=== PATIENT | female | born 1960 | race Hispanic/Latino ===

== ENCOUNTER 2019-03-21 16:52 | Emergency (ER) | payer SELFPAY ==
[2019-03-21 17:12] VITALS: BP 168/86
--- NOTE | 2019-03-21 17:14 | Event Note ---
ED Screening Note Date of service: 03/21/19 Time: 17:13 ED Screening Note: Pt complains of generalized body aches, fever, and right sided facial/neck pain x yesterday. States recently bitten by a tick 4 days ago This initial assessment/diagnostic orders/clinical plan/treatment(s) is/are subj ect to change based on patients health status, clinical progression and re- assessment by fellow clinical providers in the ED. Further treatment and workup at subsequent clinical providers discretion. Patient/guardian urged not to elope from the ED as their condition may be serious if not clinically assessed and managed. Initial orders include: CBC BMP ESR UA Flu
== END 2019-03-21 18:33 | disposition left against medical advice (07) ==
LOC: ED 16:52
DX: M79.18 Myalgia, other site (principal); Z53.21 Procedure and treatment not carried out due to patient leaving prior to being seen by health care provider
CPT/HCPCS: 36415